=== PATIENT | male | born 1980 | race Caucasian/White ===

== ENCOUNTER 2025-09-26 10:26 | Emergency (ER) | payer BC, SELFPAY ==
[2025-09-26 10:27] VITALS: BP 138/83; PULSE 70; RESP 16; TEMP 36.4; O2SAT 100
[2025-09-26 10:46] VITALS: BP 119/82; PULSE 63; RESP 18; O2SAT 97; BMI 31.4
--- NOTE | 2025-09-26 10:47 | EKG12_ITS ---
Test Reason : CP Blood Pressure : */* mmHG Vent. Rate : 63 BPM Atrial Rate : 63 BPM P-R Int : 138 ms QRS Dur : 84 ms QT Int : 408 ms P-R-T Axes : 32 17 51 degrees QTcB Int : 417 ms Normal sinus rhythm Normal ECG Confirmed by Bran Hill ([id number]), primer expeditor and drier YOHANA VELASQUEZ ([id number]) on 09/27/2025 8:27:31 AM Referred By: Confirmed By: Bran Hill
--- NOTE | 2025-09-26 10:47 | ED.VIS.CHEST ---
HPI History of Present Illness Chief Complaint: Chest Pain Informant: patient Narrative Narrative: 44-year-old male presenting to the emergency room stating he just does not feel right. Patient states that about 1/2-hour before evaluation he was driving. 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 He states that he felt that his heart was beating irregularly. He noted a burning sensation in his mid chest upper abdomen. He states he felt that was odd because he ate a breakfast burrito for breakfast but there was not anything spicy with that. He states that he tried to use the voice recognition software on his phone to send a text message to his significant other but he was having difficulty picking him up and he felt like he was speaking differently. He states at the current time he just feels anxious and has a burning sensation in the chest. The patient states that yesterday while walking around [place] shopping he felt his foot feel numb and lightheaded. Those symptoms resolved. He denies any known medical problems. He denies any back pain. No arm or leg weakness. States he does not feel like he is having any difficulty speaking at the current time. He denies headache. No known early family history of heart disease. [facility] Medical History Chest tightness Home Medications Medication Instructions Recorded Last Taken Type NK 09/26/25 Unknown History Allergy/AdvReac Type Severity Reaction Status Date / Time Penicillins (PCN) Allergy Intermediate NEEDS Verified 09/26/25 10:27 FOLLOW-UP Social History Smoking Status: Former smoker ROS ROS ED Constitutional Constitutional ED: Denies chills, fever(s) or weight loss Eyes Eyes: Denies change in vision or diplopia ENT ENT ED: Denies ear pain, rhinorrhea or sore throat Cardiovascular Cardiovascular: Reports as per HPI, chest pain, palpitations and other Details: Lightheadedness ; Denies orthopnea or racing heartbeat Respiratory/Chest Respiratory/Chest: Denies cough, dyspnea or orthopnea Gastrointestinal Gastrointestinal: Reports abdominal pain; Denies diarrhea, nausea or vomiting Genitourinary Genitourinary ED: Denies dysuria, hematuria or urinary frequency Musculoskeletal Musculoskeletal: Denies arthralgias or myalgias Integumentary Denies abscess or rash Neurologic Neurologic: Reports paresthesias RLE (Right foot "numbness"); Denies headache(s) or weakness Psychiatric Psychiatric: Reports anxiety; Denies depression, suicidal ideation or suicidal thoughts Endocrine Endocrinology: Denies polydipsia, polyphagia or polyuria Allergic/Immunologic Allergic/Immunologic ED: Denies mouth swelling, tongue swelling or urticaria EXAM Physical Exam Const Vital Signs: 09/26/25 10:27 09/26/25 10:44 09/26/25 10:46 Temperature 97.5 F L Temperature Source Temporal Pulse Rate 70 63 Respiratory Rate 16 18 Respiratory Effort Normal Non-Labored Blood Pressure 138/83 H 119/82 H Blood Pressure Mean 101 94 Pulse Ox 100 97 Oxygen Delivery Method Room Air Room Air 09/26/25 12:06 09/26/25 12:49 09/26/25 14:39 Temperature Temperature Source Pulse Rate 69 58 L 64 Respiratory Rate 18 18 16 Respiratory Effort Blood Pressure 119/89 H 117/79 116/81 H Blood Pressure Mean 99 91 92 Pulse Ox 97 97 98 Oxygen Delivery Method Room Air Room Air Room Air Positive well nourished and well developed General Appearance ED: well developed and NAD HEENT Reports normocephalic, head/scalp atraumatic and moist mucous membranes Eyes PERRL and EOMs intact bilaterally Neck no lymphadenopathy, supple and no JVD Resp normal respiratory effort and clear to auscultation bilaterally Cardio regular rate, regular rhythm and no murmurs GI normal to inspection, nondistended, normoactive bowel sounds and non-tender Palpation: soft Back/Spine no CVA tenderness and normal ROM Extremity normal to inspection General Extremety ED: Negative for edema General Extremity: Negative for edema Neuro oriented x3 and CN's II-XII intact bilaterally Sensorium / Orientation: alert Motor Exam: strength 5/5 throughout Psych mental status grossly normal Mood & Affect: Negative for depressed or tearful Skin no rashes or lesions noted and no wounds MDM MDM MDM Narrative Medical decision making narrative: Differential diagnosis includes but not limited to stroke dissection acute coronary syndrome (STEMI NSTEMI) cardiac dysrhythmia electrolyte abnormalities anemia indigestion anxiety pancreatitis My independent read of the EKG is normal sinus rhythm at a rate of [address] changes suggestive of ACS. 2 sets of cardiac enzymes are both less than 6. Lipase normal liver enzymes showed a total bilirubin of 1.89 direct bilirubin 0.63. Normal electrolytes. Hemoglobin 15.7. My independent interpretation the chest x-ray is no acute process. Normal mediastinal silhouette. CTA of the head and neck does not demonstrate any acute findings of aneurysm dissection or stroke. Patient had no events on the monitor. I spoke with the patient regarding the above findings. He states last time he really had anything medically going on it was felt that he may have had an anxiety attack. At this point I do not see any reason for the patient to be hospitalized at this time. Symptoms have resolved. Would recommend PCP follow-up if he chooses. He does not currently have 1. I can refer him to the next no doc primary care. Patient to monitor symptoms return if worsening or concerns History & Record Review Discussion w/independent historian: Patient Lab Data Attestation: I reviewed the patient's lab results. Labs: Laboratory Results - last 24 hr 09/26/25 09/26/25 09/26/25 10:41 10:45 12:40 WBC 6.9 RBC 5.39 Hgb 15.7 Hct 48.1 MCV 89.2 MCH 29.1 MCHC 32.6 RDW Std Deviation 43.3 RDW Coeff of Kelli 13.2 Plt Count 245 MPV 10.9 Immature Gran % (Auto) 0.100 Neut % (Auto) 55.5 Lymph % (Auto) 27.3 [place] % (Auto) 7.1 Eos % (Auto) 9.4 H Baso % (Auto) 0.6 Absolute Neuts (auto) 3.8 Absolute Lymphs (auto) 1.88 Nucleated RBC % 0 Sodium 141 Potassium 3.9 Chloride 104 Carbon Dioxide 26.2 Anion Gap 11 BUN 11 Creatinine 1.04 Estim Creat Clear Calc 132.89 Est GFR (MDRD) Non-Af 92 BUN/Creatinine Ratio 10.2 Glucose 83 Calcium 9.4 Total Bilirubin 1.89 H Direct Bilirubin 0.63 H AST 19 ALT 12 Alkaline Phosphatase 55 Troponin T High Sens < 6 Troponin T Hi Sens 2 Hr < 6 Total Protein 6.9 Albumin 4.4 Globulin 2.6 Lipase 19 POC Glucose 90 Radiography Diagnostic Testing: Clinical Impression(s) from Imaging Studies Chest X-Ray 09/26/25 10:54 IMPRESSION: No Acute Findings. Reading Location: [facility] Head/Neck CTA 09/26/25 12:10 IMPRESSION: No significant arterial abnormality as above. I do suspect mild M1 segment atherosclerotic disease on the right. The transverse sinus on the left is not well opacified with contrast. This may be a result of an arachnoid cyst or congenital prominence of the CSF space in this vicinity. If there is clinical concern for dural sinus thrombosis, consider MRV. Additional findings as above. Reading Location: [facility] EKG Initial EKG: Attestation: I personally reviewed and interpreted this EKG as follows: Comments: Normal sinus rhythm ventricular rate of 63 bpm Discharge Plan Triage Chief Complaint: Chest Pain ED Provider: Atif Thomas Dx/Rx/DC Orders Clinical Impression: Chest pain, Dysarthria, Palpitations Instructions: ED Chest Pain, Noncardiac, ED Heart Palpitations Prescriptions: No Action NK Primary Care Provider: Care Physician,No Primary Referrals: John Henley MD [Med Staff - [facility]] - 3-5 Days Referral Note: for primary care Care Physician,No Primary [Primary Care Provider, Medical] Print Language: Thai Disposition Disposition: Home, Self Care Discharge Date/Time: 09/26/25 14:44 NIHSS NIHSS 1a. Level of Consciousness: 0 - Alert; keenly responsive 1b. LOC Questions: 0 - Answers BOTH questions correctly 1c. LOC Commands: 0 - Performs BOTH tasks correctly 2. Best Gaze: 0 - Normal 3. Visual: 0 - No visual loss 4. Facial Palsy: 0 - Normal symmetrical movements 5a. Left Arm: 0 - No drift; arm holds 90 (or 45) degrees for full 10 seconds 5b. Right Arm: 0 - No drift; arm holds 90 (or 45) degrees for full 10 seconds 6a. Left Le - No drift; leg holds 30-degree position for full 5 seconds 6b. Right Le - No drift; leg holds 30-degree position for full 5 seconds 7. Limb Ataxia: 0 - Absent 8. Sensory: 0 - Normal; no sensory loss 9. Best Language: 0 - No aphasia; normal 10. Dysarthria: 0 - Normal 11. Extinction and Inattention: 0 - No abnormality Total: 0
--- NOTE | 2025-09-26 10:54 | RAD_ITS ---
PROCEDURE: CHEST 1 VIEW (PORTABLE) 09/26/2025 REASON FOR EXAM: CHEST PAIN TECHNIQUE: Frontal view of the chest. COMPARISON: None FINDINGS: Lungs are clear. Cardiomediastinal silhouette and osseous structures are unremarkable. RAD/Chest 1 View (Portable) IMPRESSION: No Acute Findings. [facility]
[2025-09-26 10:56] LABS: Hematocrit 48.1 % (40-54); Hemoglobin 15.7 g/dL (13.0-16.5); Immature Granulocytes Count 0.010 X10^3/uL (0.0-0.0); Mean Corp Hgb Conc 32.6 g/dL (32-36); Mean Corpuscular Volume 89.2 fL (80-94); Mean Platelet Vol. 10.9 fl (6.2-12.0); NRBC Flagged by Analyzer 0 % (0-5); Platelet Count 245 K/mm3 (150-450); RBC Distribution Width CV 13.2 % (11.6-14.6); RBC Distribution Width SD 43.3 fl (35.1-43.9); Red Blood Count 5.39 M/mm3 (4.6-6.2); White Blood Count 6.9 K/mm3 (4.4-11.0)
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
[2025-09-26 11:17] LABS: AST(SGOT) 19 U/L (<=37); Alanine Aminotransfer ALT/SGPT 12 U/L (<=46); Albumin, Serum 4.4 g/dL (3.5-5.0); Alkaline Phosphatase 55 U/L (40-129); Anion Gap 11 (5-15); BUN 11 mg/dL (4-19); BUN/Creat Ratio 10.2 RATIO (10-20); Bilirubin, Direct 0.63 mg/dL (0.00-0.30); Calcium,Total 9.4 mg/dL (7.6-11.0); Carbon Dioxide 26.2 mmol/L (21.0-32.0); Chloride 104 mmol/L (98-108); Estimated Creatinine Clearance 132.89 ml/min (50-250); Globulin 2.6 g/dL (2.2-4.2); Glucose 83 mg/dL (70-99); Lipase 19 U/L (13-75); Potassium 3.9 mmol/L (3.3-5.1)
[2025-09-26 11:18] LABS: Troponin T High Sensitivity < 6 ng/L (<=22)
[2025-09-26 12:06] VITALS: BP 119/89; PULSE 69; RESP 18; O2SAT 97
--- NOTE | 2025-09-26 12:10 | CT_ITS ---
PROCEDURE: CTA HEAD AND NECK W/ CONTRAST 09/26/2025 REASON FOR EXAM: DYSARTHRIA TECHNIQUE: Procedure Code: CTCTA.HDNCK Modality: CT Procedure: CTA HEAD AND NECK W/ CONTRAST Multiplanar Sagittal and Coronal images were obtained. CONTRAST: Isovue 370 VOLUME: 83 mL One or more dose reduction techniques were used (e.g., Automated exposure control, adjustment of the mA and/or kV according to patient size, use of iterative reconstruction technique). RADIATION DOSE SUMMARY: CTDlvol: 44.99 mGy DLP: 870.06 mGycm COMPARISON: None FINDINGS: There is no evidence of acute intracranial hemorrhage or mass effect. Ventricles and cortical sulci are unremarkable. The orbits are unremarkable. The paranasal sinuses and mastoid air cells are grossly clear. The calvarium is intact. The lung apices are clear. No mediastinal mass or adenopathy. The thyroid gland is unremarkable. The parotid and submandibular glands are unremarkable. No neck adenopathy. Osseous structures are grossly unremarkable. Regarding the vasculature, the arch vessels are unremarkable. The subclavian arteries are widely patent bilaterally. No significant carotid disease. The vertebral arteries are widely patent and codominant. Intracranially, the internal carotid arteries are grossly unremarkable. The anterior cerebral arteries and anterior communicating artery are unremarkable. The middle cerebral arteries are unremarkable. There is perhaps a minimal irregularity of the MCA on the right on image 456, series 4 which could reflect minimal atherosclerotic disease. The vertebrobasilar system is unremarkable. The posterior communicating arteries are grossly patent. The posterior cerebral arteries are patent and unremarkable. The cerebral venous dural sinuses are generally patent although the transverse sinus on the left is not well opacified. This may be a result of an arachnoid cyst or congenital prominence of the CSF space in this vicinity, as seen on image 452, series 4. CT/CTA Head AND Neck W/ Contrast IMPRESSION: No significant arterial abnormality as above. I do suspect mild M1 segment ath erosclerotic disease on the right. The transverse sinus on the left is not well opacified with contrast. This may be a result of an arachnoid cyst or congenital prominence of the CSF space in this vicinity. If there is clinical concern for dural sinus thrombosis, consider MRV. Additional findings as above. Reading [facility]
[2025-09-26 12:49] VITALS: BP 117/79; PULSE 58; RESP 18; O2SAT 97
[2025-09-26 13:11] LABS: Troponin T High Sens 2 HR < 6 ng/L (<=22)
--- NOTE | 2025-09-26 13:44 | ED.RN ---
CT aware of delay in CT reads
[2025-09-26 14:39] VITALS: BP 116/81; PULSE 64; RESP 16; O2SAT 98
== END 2025-09-26 14:44 | disposition home or self-care (01) ==
PROVIDERS: Emergency Provider Emergency Medicine; Visit Provider Emergency Medicine
DX: R07.9 Chest pain, unspecified (principal); R47.1 Dysarthria and anarthria; R00.2 Palpitations; Z87.891 Personal history of nicotine dependence
CPT/HCPCS: 70496; 70498; 71045; 80048; 80076; 82962; 83690; 84484; 85025; 93005; 99285; Q9967; A4216

== ENCOUNTER → 2025-10-08 | Outpatient (CLI) | payer BC, SELFPAY ==
--- OUTSIDE RECORDS SUMMARY | 2025-10-08 13:02 | XMS RPT_ITS | CCD ---
Author Organization [facility] Care Team Providers Care Drapery Hanger Name Role Phone ARINAANDREINA (FOUNDATION DRILL OPERATOR HELPER) Unavailable Unavailable KIRK ARANDA Referring Unavailable KIRK ARANDA Attending Unavailable Allergies Allergy Classification Reported Allergen(s) Allergy Type Date of Onset Reaction(s) Facility (1 source) penicillin; Translations: [PENICILLIN] Drug Allergy 05-31-2016 [facility] Repository Problems Problem Classification Problem Date [...] Electronically Signed Date/Time: 10/24/2022 7:[address] [facility] ED Nursing Noteon 10-24-2022 ED Nursing Note Discharge instructions & follow-up information reviewed with patient; verbalizes understanding. Return precautions given. Pt discharged home in stable condition with all personal belongings. Atif Delacruz RN 10/24/222005 [facility] ED Nursing Note Patient off the floor to CT scan. Prior to leaving patient was resting comfortably on cot, patient was able to stand on standing scale for accurate weight. Joyce Loaiza RN 10/24/22 [id number] [facility] ED Nursing Note Patient ambulatory to room [...] bedside monitor and continuous pulse oximeter. [facility] ED Provider Noteon ED Provider Note Emergency [...] lb 12.8 oz) Height: 1.93 m (6' 4) Medications - No data to display MDM [...] MEDICATIONS: ED Prescriptions None I am the health clinician of record. Kirk Aranda MD Emergency Medicine Kirk Aranda MD 10/24/[address] [facility] CNOVon 05-24-2017 CNOV Office Visit (INTMWS) KAYLEE STAPLES ([id number]) 1980 MDate Time Provider Department05/24/17 2:00 PM ANDREINA SANTA ([facility]) INTMWS During your visit today, we recorded the following information about you: Temperature Pulse Respiration Blood pressure 97.4 degrees 84/minute 14/minute 146/102 Weight 140.6 kgNaz Older, FOUNDATION D[employer]LL OPERATOR HELPER 05/24/2017 2:51 PM SignedCC: Patient presents with:Follow Up: MedicationsHPMariochayito Staples is a 36 year old male [...] visit- Recheck at follow-up, sooner if needed.Helio Simpson, ANA 05/24/2017 2:22 PM SignedCall office if BP is consistently over 140/90Referring Provider: SELF [[id number]]Allergies As of Date: 05/24/2017 Noted Allergy ReactionPENICILLIN 05/31/2016 10 - Anaphylaxis Comments: As a childDate Reviewed: 05/24/2017Reviewed by: Camryn Giles Back Sizer - Fully AssessedReason for Visit: Follow Up [...] along with otherpeople? -> Somewhat difficultEncounter Number: [id number] Status:Closed by ANDREINA SANTA CNP on 05/24/17 [facility] PROGRESSon 05-24-2017 PROGRESS HNO ID: [id number] thor: Andreina Hull) ArinaService: (none)Author Type: Nurse PractitionerType: Progress NotesFiled: [...] Recheck at follow-up, sooner if needed.Andreina Older, FOUNDATION DRILL OPERATOR HELPER [facility] Encounters Encounter Date Encounter Type Care Provider Facility Start: 10-24-2022 End: 10-25-2022 Emergency department patient visit KIRK RAMÓNNigel [facility] Start: 05-24-2017 End: 05-24-2017 Ambulatory ANDREINA (FOUNDATION D[employer] OPERATOR HELPER) OLDER [facility] Payers Date Payer Category Payer Unknown [id number] Clinical Note 10-25-2022 Note Date & Type Note Facility 10-25-2022 Note IMPRESSION: Sinus rhythm Abnormal R-wave progression, early transition No previous ECG available for comparison Electronically Signed On 10-25-2022 7:23:08 EST by Law Hoover [facility] Summary Purpose Family History No Family History Records FoundNo Family History Records Found Advance Directives No Advanced Directives Records FoundNo Advanced Directives Records Found Additional Source Comments (unrecognized sect ion and content) No Status Records FoundNo Status Records Found INFORMATION SOURCE (unrecogn ized section and content) DATE CREATED AUTHOR 04/23/2018 [facility] DATE CREATED AUTHOR AUTHOR'S ORGANIZ ATION 10/25/2022 [facility] FOR RECORDS PERTAINING TO PATIENTS WHO ARE [...] BE BASED ON THE PRIMARY CLINICAL RECORDS. [employer] [facility]. provides no warranty or guarantee of the accuracy or completeness of information in this document.
[2025-10-08 15:46] LABS: Anion Gap 10 (5-15); BUN 13 mg/dL (4-19); BUN/Creat Ratio 12.3 RATIO (10-20); Bilirubin, Direct 0.41 mg/dL (0.00-0.30); Calcium,Total 9.5 mg/dL (7.6-11.0); Carbon Dioxide 26.7 mmol/L (21.0-32.0); Chloride 105 mmol/L (98-108); Glucose 77 mg/dL (70-99); Potassium 4.0 mmol/L (3.3-5.1)
== END | disposition home or self-care (01) ==
LOC: MTLAB 12:41
PROVIDERS: Family Medicine; PCP Family Medicine; Referring Provider Family Medicine; Visit Provider Family Medicine
DX: E80.6 Other disorders of bilirubin metabolism (principal); F41.9 Anxiety disorder, unspecified
CPT/HCPCS: 36415; 80048; 82247; 82248; 84443